=== PATIENT | male | born 1940 | race Caucasian/White ===

== ENCOUNTER 2018-10-16 14:09 | Emergency (ER) | payer BC ==
[~2018-10-16] VITALS: Ht 177.8 cm; Wt 68.0 kg
[2018-10-16] MEDS ORDERED: TETRACAINE HCL/PF 0.5% UD 2 ML BOTTLE ONE (14:25)
[2018-10-16] MEDS ORDERED: FLUORESCEIN SODIUM OPHTH 1 EA STRIP ONE (14:25)
--- NOTE | 2018-10-16 14:30 | NUR ---
DR SANDERS AT BEDSIDE
--- NOTE | 2018-10-16 15:23 | NUR ---
PT RT GETTING FLUSHED NS 1L WO VIA RYLEE LENS, PT ODILIA WELL.
[2018-10-16 16:38] VITALS: BP 118/70
--- NOTE | 2018-10-16 16:38 | NUR ---
Patient discharged to home in stable condition. Written and verbal after care instructions given. Patient verbalizes understanding of instruction.
== END 2018-10-16 16:39 | disposition home or self-care (01) ==
LOC: ER 14:14
DX: H10.211 Acute toxic conjunctivitis, right eye (principal); R10.31 Right lower quadrant pain; G89.29 Other chronic pain; M25.551 Pain in right hip; Z60.2 Problems related to living alone
CPT/HCPCS: 73502; 99283; A4606; J7030; Z7610

== ENCOUNTER 2022-12-09 00:29 | Emergency (ER) | payer BC ==
[~2022-12-09] VITALS: Ht 175.3 cm; Wt 63.5 kg
--- NOTE | 2022-12-09 00:40 | NUR ---
SARAHY 878 FROM HOME FOR C/O L HIP PAIN RADIAITING DOWN TO THE CALF X 1 WEEK. NO REPORTS OF FALL. PATIENT IS AAOX4. ABLE TO MAKE NEEDS KNOWN. PLACED COMFORTABLY IN BED. VITALS CHECKED.
--- NOTE | 2022-12-09 00:40 | NUR ---
CAME BACK FROM CT SCAN DEPT
[2022-12-09] MEDS ORDERED: HYDROCODONE/APAP 5/325MG TABLET ONE (00:42)
[2022-12-09] MEDS ORDERED: DIAZEPAM 5 MG TABLET ONE (00:42)
[2022-12-09] MEDS ORDERED: HYDROCODONE/APAP 5/325MG TABLET PO ONE (01:00)
[2022-12-09] MEDS ORDERED: DIAZEPAM 5 MG TABLET PO ONE (01:00)
[2022-12-09] MEDS ORDERED: DIAZ5TAB PO (04:04)
[2022-12-09] MEDS ORDERED: OXYC-128 PO (04:04)
--- NOTE | 2022-12-09 04:13 | NUR ---
MD AT BEDSIDE EXPLAINING THE FINDINGS TO PATIENT.
--- NOTE | 2022-12-09 04:35 | NUR ---
Patient discharged to home in stable condition. Written and verbal after care instructions given. Patient verbalizes understanding of instruction.
[2022-12-09 04:49] VITALS: BP 134/75
== END 2022-12-09 04:50 | disposition home or self-care (01) ==
LOC: ER 00:32
DX: S39.012A Strain of muscle, fascia and tendon of lower back, initial encounter (principal); M51.26 Other intervertebral disc displacement, lumbar region; Z60.2 Problems related to living alone; X50.1XXA Overexertion from prolonged static or awkward postures, initial encounter; Y93.89 Activity, other specified; Y92.89 Other specified places as the place of occurrence of the external cause; Y99.8 Other external cause status

== ENCOUNTER 2023-02-09 16:03 | Emergency (ER) | payer BC ==
[~2023-02-09] VITALS: Ht 172.7 cm; Wt 64.4 kg
[~2023-02-09 16:03] MED LIST: DIAZ5TAB PO; OXYC-128 PO
--- NOTE | 2023-02-09 16:30 | NUR ---
C/O RIGHT SIDED FLANK PAIN RADIATING TO RLQ ABDOMEN + NAUSEA VOMITING AND DYSURIA.
--- NOTE | 2023-02-09 16:35 | NUR ---
URINE SAMPLE COLLECTED AND SENT TO LAB
--- NOTE | 2023-02-09 16:45 | NUR ---
ESTABLISHED IV LINE 18G RIGHT FOREARM INFUSING WELL
--- NOTE | 2023-02-09 16:46 | NUR ---
BLOOD SAMPLE OBTAINED SENT TO LAB
--- NOTE | 2023-02-09 16:51 | NUR ---
TAKEN TO CT
[2023-02-09 16:55] LABS: BILIRUBIN,URINE NEGATIVE (NEGATIVE); COLOR,URINE YELLOW (YELLOW); LEUKOCYTE ESTERASE ,URINE NEGATIVE (NEGATIVE); NITRITE, URINE POSITIVE (NEGATIVE); PROTEIN,URINE NEGATIVE (NEGATIVE); UGLUCOSE NEGATIVE (NEGATIVE); UROBILINOGEN,URINE 0.2 EU/dL (0.2)
[2023-02-09 17:15] LABS: BACTERIA,URINE Rare /HPF (None Seen); RBC,URINE 21-50 /HPF (0-2); SQUAMOUS EPITHELIAL CELL,UR Rare /HPF (None Seen); WBC,URINE NONE SEEN /HPF (0-3)
[2023-02-09 17:28] LABS: BASOPHILS % (AUTO) 0.1 % (0.0-2.0); HEMATOCRIT 40 % (39-51); LYMPHOCYTES # (AUTO) 0.5 K/uL (0.8-4.8); LYMPHOCYTES % (AUTO) 4.2 % (20.0-44.0); MEAN CORPUSCULAR HGB CONC 33 g/dl (31.0-36.0); MEAN CORPUSCULAR VOLUME 88 fL (80-96); MONOCYTES # (AUTO) 0.6 K/uL (0.1-1.30); MONOCYTES % (AUTO) 5.2 % (2.0-12.0); NEUTROPHILS # (AUTO) 10.6 K/uL (1.8-8.9); NEUTROPHILS % (AUTO) 90.5 % (43.0-81.0); PLATELET COUNT (AUTO) 214 K/uL (150-450); RED BLOOD CELL COUNT(AUTO) 4.52 MIL/uL (4.5-6.0); WHITE BLOOD COUNT (AUTO) 11.7 K/uL (4.3-11.0)
[2023-02-09 17:51] LABS: CALCIUM, SERUM 9.3 mg/dL (8.5-10.1); CREATININE 1.2 mg/dL (0.6-1.3); POTASSIUM 4.6 mmol/L (3.5-5.1)
[2023-02-09 17:58] LABS: ALBUMIN 3.5 g/dL (3.4-5.0); BILIRUBIN,DIRECT 0.2 mg/dL (0.0-0.2); BILIRUBIN,TOTAL 0.7 mg/dL (0.2-1.0); TOTAL PROTEIN, SERUM 6.4 g/dL (6.4-8.2)
[2023-02-09] MEDS ORDERED: ONDA4TAB11 PO (18:29)
[2023-02-09] MEDS ORDERED: CEFP200T14 PO (18:29)
[2023-02-09] MEDS ORDERED: IBUP-1955 PO (18:29)
[2023-02-09] MEDS ORDERED: CEFTRIAXONE 1GM BAG (ER ONLY) 1 GM/50 ML PIGGYBACK IV ONE (18:30)
[2023-02-09] MEDS ORDERED: CEFTRIAXONE 1GM BAG (ER ONLY) 0 ML IV ONE (18:33)
[2023-02-09] MEDS ORDERED: CEFTRIAXONE 1GM BAG (ER ONLY) 50 ML IV ONE (18:36)
--- NOTE | 2023-02-09 18:53 | NUR ---
Patient discharged to home in stable condition. Written and verbal after care instructions given. Patient verbalizes understanding of instruction.
--- NOTE | 2023-02-09 18:53 | NUR ---
IV removed. Catheter intact and site benign. Pressure and 4x4 applied to site. No bleeding noted.
[2023-02-09 18:54] VITALS: BP 141/66
== END 2023-02-09 19:03 | disposition home or self-care (01) ==
LOC: ER 16:07
DX: N20.0 Calculus of kidney (principal); N39.0 Urinary tract infection, site not specified; R10.9 Unspecified abdominal pain; Z60.2 Problems related to living alone
CPT/HCPCS: 99285; 74176; 96374; 85025; 80048; 87086; 80076; 81001; 36415; J0696